=== PATIENT | female | born 1990 | race Two or more races ===

== ENCOUNTER 2018-11-30 13:13 | Emergency (ER) | payer OTHER ==
[~2018-11-30] VITALS: Ht 160 cm; Wt 69.9 kg
[2018-11-30] MEDS ORDERED: PRENA1 CHEW TA1.4 MG (13:32)
[2018-11-30] MEDS ORDERED: ALDOMET250 MG (13:32)
== END 2018-11-30 21:58 | disposition home or self-care (01) ==
LOC: ER 13:13
DX: O26.891 Other specified pregnancy related conditions, first trimester (principal); R10.2 Pelvic and perineal pain; Z34.01 Encounter for supervision of normal first pregnancy, first trimester

== ENCOUNTER 2023-07-11 19:06 | Emergency (ER) | payer OTHER ==
[~2023-07-11] VITALS: Ht 167.6 cm; Wt 75.7 kg
[~2023-07-11 19:06] MED LIST: ALDOMET250 MG; PRENA1 CHEW TA1.4 MG
== END 2023-07-11 19:53 | disposition home or self-care (01) ==
LOC: ER 19:06
DX: G43.829 Menstrual migraine, not intractable, without status migrainosus (principal)

== ENCOUNTER 2023-08-13 14:52 | Emergency (ER) | payer OTHER ==
[~2023-08-13] VITALS: Ht 160 cm; Wt 68.0 kg
== END 2023-08-13 17:26 | disposition home or self-care (01) ==
LOC: ER 14:52
DX: J06.9 Acute upper respiratory infection, unspecified (principal)